=== PATIENT | female | born 1995 | race Caucasian/White ===

== ENCOUNTER 2021-03-19 15:17 | Outpatient (CLI) | payer OTHER | END 2021-03-19 15:18 | disposition home or self-care (01) | LOC: LAB.N 15:17 | PROVIDERS: ATTEND Obstetrics & Gynecology | DX: Z32.01 Encounter for pregnancy test, result positive (principal); Z87.59 Personal history of other complications of pregnancy, childbirth and the puerperium | CPT/HCPCS: 36415; 84702 ==

== ENCOUNTER 2021-03-22 08:00 | Outpatient (CLI) | payer OTHER | END 2021-03-22 08:01 | disposition home or self-care (01) | LOC: LAB.WCP 08:00 | PROVIDERS: ATTEND Obstetrics & Gynecology | DX: Z32.01 Encounter for pregnancy test, result positive (principal); Z87.59 Personal history of other complications of pregnancy, childbirth and the puerperium | CPT/HCPCS: 36415; 84702; 86900; 86901 ==

== ENCOUNTER 2021-03-22 13:52 | Outpatient (CLI) | payer OTHER | END 2021-03-22 13:53 | disposition home or self-care (01) | LOC: LAB.N 13:52 | PROVIDERS: ATTEND Obstetrics & Gynecology | DX: Z32.01 Encounter for pregnancy test, result positive (principal); Z87.59 Personal history of other complications of pregnancy, childbirth and the puerperium | CPT/HCPCS: 36415; 84702; 86900; 86901 ==

== ENCOUNTER 2021-03-27 08:00 | Outpatient (CLI) | payer OTHER | END 2021-03-27 23:59 | disposition home or self-care (01) | LOC: LAB.WCP 08:00 | PROVIDERS: ATTEND Obstetrics & Gynecology | DX: Z32.01 Encounter for pregnancy test, result positive (principal); Z87.59 Personal history of other complications of pregnancy, childbirth and the puerperium | CPT/HCPCS: 36415; 84702 ==

== ENCOUNTER 2021-03-30 08:00 | Outpatient (CLI) | payer OTHER | END 2021-03-30 23:59 | disposition home or self-care (01) | LOC: LAB.WCP 08:00 | PROVIDERS: ATTEND Obstetrics & Gynecology | DX: Z32.01 Encounter for pregnancy test, result positive (principal); Z87.59 Personal history of other complications of pregnancy, childbirth and the puerperium | CPT/HCPCS: 36415; 84702 ==

== ENCOUNTER 2021-04-02 11:50 | Outpatient (CLI) | payer OTHER ==
--- NOTE | 2021-04-02 15:46 | Ultrasound Report ---
PROCEDURE: OB First Trimester w/TV INDICATIONS: HX OF SPONTANEOUS , POSITIVE PREG TEST OUTSIDE/PRIOR DATING DATA: Last menstrual period (LMP): 02/16/2021. LMP-based estimated date of delivery (CONNIE): 11/23/2021 First dating scan (date and location): 04/02/2021. Estimated date of delivery (CONNIE) from first dating scan: 11/23/2021. TECHNIQUE: Real-time scanning was performed of the fetus and maternal pelvic organs, with image documentation. Endovaginal scanning was also performed to better visualize the fetus and maternal ovaries. COMPARISON: FINDINGS: Embryo: There is a single living intrauterine gestation with a heart rate of 122 bpm. [place]-ru mp length is 6 mm corresponding to a 6 week 3 day gestation. Measurement variability in dating: +/- 4 weeks by LMP, +/- 7 days by mean sac diameter (use before 6 weeks gestation if crown-rump length not able to be measured), +/- 5 days by crown-rump length (6-12 weeks gestation). Maternal organs: Ovaries there is a left-sided corpus luteal cyst.. IMPRESSION: Single living intrauterine gestation as above. Reviewed by: Chaya Atkins MD on 04/02/2021 3:45 PM PDT Approved by: Chaya Atikns MD on 04/02/2021 3:45 PM PDT Station ID: [id number]
== END 2021-04-02 11:51 | disposition home or self-care (01) ==
LOC: DI 11:50
PROVIDERS: ATTEND Obstetrics & Gynecology
DX: Z32.01 Encounter for pregnancy test, result positive (principal); Z87.59 Personal history of other complications of pregnancy, childbirth and the puerperium

== ENCOUNTER 2021-05-10 08:00 | Outpatient (CLI) | payer OTHER ==
[2021-05-11 17:52] LABS: % IRON SATURATION 27 % (20-50); IRON 97 ug/dL (28-170); TOTAL IRON BINDING CAPACITY 365 ug/dL (250-450); TRANSFERRIN 261 mg/dL (192-382)
== END 2021-05-10 23:59 | disposition home or self-care (01) ==
LOC: LAB 08:00
PROVIDERS: ATTEND Obstetrics & Gynecology
DX: O99.019 Anemia complicating pregnancy, unspecified trimester (principal); D64.9 Anemia, unspecified
CPT/HCPCS: 36415; 83540; 84466

== ENCOUNTER 2021-05-10 08:00 | Outpatient (CLI) | payer OTHER ==
[2021-05-10 16:01] LABS: MUDS CUTOFF CONCENTRATIONS CUTOFF CONC BELOW:
[2021-05-10 16:06] LABS: BILIRUBIN,URINE NEGATIVE (NEGATIVE); GLUCOSE, URINE (UA) NEGATIVE (NEGATIVE); KETONES,URINE (UA) TRACE mg/dL (NEGATIVE); LEUKOCYTE ESTERASE, URINE NEGATIVE (NEGATIVE); NITRITE,URINE NEGATIVE (NEGATIVE); OCCULT BLOOD,URINE NEGATIVE (NEGATIVE); PROTEIN,URINE NEGATIVE (NEGATIVE); UROBILINOGEN,URINE 0.2 (NORMAL) E.U./dL (NORMAL)
[2021-05-10 16:12] LABS: CLARITY,URINE HAZY (CLEAR)
[2021-05-10 16:16] LABS: BACTERIA,URINE Moderate /HPF (None Seen); MUCUS,URINE Moderate Strands; RBC,URINE 0-5 /HPF (0-5); SQUAMOUS EPITHELIAL CELL,UR MOD Squamous (<= Few); WBC,URINE 0-3 /HPF (0-5)
[2021-05-10 16:17] LABS: AMPHETAMINE SCREEN,URINE NEGATIVE (NEGATIVE); BARBITURATE SCREEN,UR NEGATIVE (NEGATIVE); BENZODIAZEPINES SCREEN, URINE NEGATIVE (NEGATIVE); COCAINE SCREEN URINE NEGATIVE (NEGATIVE); METHADONE SCREEN, URINE NEGATIVE (NEGATIVE); METHAMPHETAMINES SCREEN, URINE NEGATIVE (NEGATIVE); OPIATE SCREEN, URINE NEGATIVE (NEGATIVE); OXYCODONE SCREEN, URINE NEGATIVE (NEGATIVE); PROPOXYPHENE SCREEN, URINE NEGATIVE (NEGATIVE); THC CANNABINOID SCREEN, URINE NEGATIVE (NEGATIVE); TRICYCLIC ANTIDEPRESSANT,URINE NEGATIVE (NEGATIVE)
[2021-05-10 21:27] LABS: CHLAMYDIA TRACHOMATIS DNA NEGATIVE (NEGATIVE); NEISSERIA GONORRHOEAE DNA NEGATIVE (NEGATIVE); TRICHOMONAS VAGINALIS DNA NEGATIVE (NEGATIVE)
== END 2021-05-10 23:59 | disposition home or self-care (01) ==
LOC: LAB.WC 08:00
PROVIDERS: ATTEND Obstetrics & Gynecology
DX: Z34.90 Encounter for supervision of normal pregnancy, unspecified, unspecified trimester (principal); Z36.89 Encounter for other specified antenatal screening
CPT/HCPCS: 80306; 81001; 87086; 87491; 87591; 87661

== ENCOUNTER 2021-05-10 14:12 | Outpatient (CLI) | payer OTHER ==
[2021-05-10 14:42] LABS: BASOPHILS % (AUTO) 0.3 %; EOSINOPHILS # (AUTO) 0.1 10^3/uL (0.0-0.7); HCT - HEMATOCRIT 32.7 % (37.0-47.0); HGB - HEMOGLOBIN 11.4 g/dL (12.0-16.0); LYMPHOCYTES # (AUTO) 1.6 10^3/uL (1.5-3.5); LYMPHOCYTES % (AUTO) 20.8 %; MEAN CORPUSCULAR HEMOGLOBIN 32.6 pg (27.0-31.0); MEAN CORPUSCULAR HGB CONC 34.9 g/dL (32.0-36.0); MEAN CORPUSCULAR VOLUME 93.4 fL (81.0-99.0); MEAN PLATELET VOLUME 9.2 fL (7.9-10.8); MONOCYTES # (AUTO) 0.4 10^3/uL (0.0-1.0); NEUTROPHILS # (AUTO) 5.6 10^3/uL (1.5-6.6); NEUTROPHILS % (AUTO) 72.5 %; PLT - PLATELET COUNT 255 10^3/uL (130-450); RED CELL DISTRIBUTION WIDTH 12.7 % (12.0-15.0); WHITE BLOOD COUNT 7.8 x10^3/uL (4.8-10.8)
[2021-05-10 15:28] LABS: THYROID STIMULATING HORMONE 0.69 uIU/mL (0.34-5.60)
[2021-05-11 12:46] LABS: HEPATITIS C ANTIBODY NON-REACTIVE (NON-REACTIVE)
[2021-05-11 12:48] LABS: HEPATITIS B SURFACE ANTIGEN NON-REACTIVE (NON-REACTIVE)
[2021-05-11 16:26] LABS: HIV AG/AB 4TH GEN NON-REACTIVE (NON-REACTIVE)
== END 2021-05-10 14:13 | disposition home or self-care (01) ==
LOC: LAB 14:12
PROVIDERS: ATTEND Obstetrics & Gynecology
DX: Z34.90 Encounter for supervision of normal pregnancy, unspecified, unspecified trimester (principal); Z36.89 Encounter for other specified antenatal screening; Z13.21 Encounter for screening for nutritional disorder; Z83.49 Family history of other endocrine, nutritional and metabolic diseases
CPT/HCPCS: 36415; 80306; 81001; 82306; 84443; 85025; 86592; 86762; 86787; 86803; 86850; 86900; 86901; 87086; 87340; 87389; 87491; 87591; 87661

== ENCOUNTER 2021-05-21 08:00 | Outpatient (CLI) | payer OTHER | END 2021-05-21 23:59 | disposition home or self-care (01) | LOC: LAB.WCP 08:00 | PROVIDERS: ATTEND Obstetrics & Gynecology | DX: O99.019 Anemia complicating pregnancy, unspecified trimester (principal) | CPT/HCPCS: 36415; 81599; 82306; 82728; 83036; 83540; 84443; 85025; 86592; 86762; 86787; 86803; 86850; 86900; 86901; 87340; 87389 ==

== ENCOUNTER 2021-05-23 11:14 | Outpatient (CLI) | payer SELFPAY | END 2021-05-23 11:15 | disposition home or self-care (01) | LOC: LAB 11:14 | PROVIDERS: ATTEND Obstetrics & Gynecology | DX: Z34.01 Encounter for supervision of normal first pregnancy, first trimester (principal) | CPT/HCPCS: 36415 ==

== ENCOUNTER 2021-06-21 08:00 | Outpatient (CLI) | payer OTHER ==
[2021-06-21 16:27] LABS: BILIRUBIN,URINE NEGATIVE (NEGATIVE); GLUCOSE, URINE (UA) NEGATIVE (NEGATIVE); KETONES,URINE (UA) NEGATIVE (NEGATIVE); LEUKOCYTE ESTERASE, URINE NEGATIVE (NEGATIVE); NITRITE,URINE NEGATIVE (NEGATIVE); OCCULT BLOOD,URINE NEGATIVE (NEGATIVE); PH,URINE 5.5 PH (5.0-7.5); PROTEIN,URINE NEGATIVE (NEGATIVE); UROBILINOGEN,URINE 0.2 (NORMAL) E.U./dL (NORMAL)
[2021-06-21 16:46] LABS: BACTERIA,URINE Rare /HPF (None Seen); CLARITY,URINE CLEAR (CLEAR); RBC,URINE 0-5 /HPF (0-5); SQUAMOUS EPITHELIAL CELL,UR FEW Squamous (<= Few); WBC,URINE 0-3 /HPF (0-5)
== END 2021-06-21 23:59 | disposition home or self-care (01) ==
LOC: LAB.WC 08:00
PROVIDERS: ATTEND Obstetrics & Gynecology
DX: O99.891 Other specified diseases and conditions complicating pregnancy (principal); R33.9 Retention of urine, unspecified; R35.0 Frequency of micturition
CPT/HCPCS: 81001; 87086

== ENCOUNTER 2021-07-04 06:56 | Outpatient (CLI) | payer OTHER ==
--- NOTE | 2021-07-04 15:45 | Ultrasound Report ---
PROCEDURE: OB Detailed Eval INDICATIONS: SUPERVISION OF OUTSIDE/PRIOR DATING DATA: Last menstrual period (LMP): 02/16/2021. LMP-based estimated date of delivery (CONNIE): 11/23/2021. First dating scan (date and location): 04/02/2021. Estimated date of delivery (CONNIE) from first dating scan: 11/23/2021. The below data below was generated using the clinical and ultrasound CONNIE, both 11/23/2021 TECHNIQUE: Real-time scanning was performed of the fetus, with image documentation and biometric measurements. COMPARISON: OB ultrasound 04/02/2021 FINDINGS: General: A single living intrauterine gestation is present. Presentation: Cephalic Placenta: Placental position is posterior, without previa. Amniotic fluid index: 16.2 cm, within normal limits for gestational age. Largest pocket 5.4 cm heart rate: 150 beats per minute. Maternal cervical canal: 4.1 cm long; normal length is 2.5 cm or more. biometrics: Biparietal diameter: 5.2 cm 21 weeks 4 days Head circumference: 18.3 cm 20 weeks 5 days Abdominal circumference: 15.2 cm 20 weeks 3 days Femur length: 3.4 cm 20 weeks 3 days Estimated gestational age from initial scan: 19 weeks 5 days Composite gestational age from present scan: 20 weeks 6 days Estimated weight and percentile: 3 60 g 88th percentile Measurement variability in biometric dating: +/- 10 days from 12-20 weeks gestation, +/- 2 weeks from 20-30 weeks gestation, +/- 3 weeks at 30 weeks gestation or later. Anatomic survey: Neuro: Ventricles are normal at less than 10 mm. Cisterna magna is normal at 3-11 mm. Cerebellum i s normal in size and morphology. Nuchal skin fold: Normal at less than 6 mm between 14 and 20 weeks gestational age. Face: Nose and lips, facial profile are normal. Spine: No evidence for spina bifida. Heart: 4-chambered heart is present, with normal ventricular outflow tracts. Diaphragm: Diaphragm is intact. Stomach: Left-sided stomach is present. Kidneys: No hydronephrosis. Normal is less than 5 mm in 2nd trimester, less than 7 mm in 3rd trimester. Cord: 3 vessel cord has orthotopic insertion. Bladder: Normal in size. Extremities: All 4 extremities are visualized. IMPRESSION: 1. Single live intrauterine . 2. Anatomy is within normal limits. Reviewed by: Kaykay Ramos MD on 07/04/2021 3:44 PM PDT Approved by: Kaykay Ramos MD on 07/04/2021 3:44 PM PDT Station ID: [id number]
== END 2021-07-04 06:57 | disposition home or self-care (01) ==
LOC: DI 06:56
PROVIDERS: ATTEND Obstetrics & Gynecology
DX: Z34.92 Encounter for supervision of normal pregnancy, unspecified, second trimester (principal); Z3A.19 19 weeks gestation of pregnancy

== ENCOUNTER 2021-08-14 14:50 | Outpatient (CLI) | payer OTHER ==
[2021-08-14 15:12] VITALS: BP 121/75
[2021-08-14 15:49] LABS: BILIRUBIN,URINE NEGATIVE (NEGATIVE); GLUCOSE, URINE (UA) NEGATIVE (NEGATIVE); KETONES,URINE (UA) NEGATIVE (NEGATIVE); LEUKOCYTE ESTERASE, URINE SMALL (NEGATIVE); NITRITE,URINE NEGATIVE (NEGATIVE); OCCULT BLOOD,URINE NEGATIVE (NEGATIVE); PH,URINE 6.5 PH (5.0-7.5); PROTEIN,URINE NEGATIVE (NEGATIVE); UROBILINOGEN,URINE 0.2 (NORMAL) E.U./dL (NORMAL)
[2021-08-14 15:53] LABS: CLARITY,URINE SL. CLOUDY (CLEAR)
--- NOTE | 2021-08-14 15:57 | PROVIDER PROGRESS NOTE ---
Progress Note Patient is a 26-year-old -0-2-0 at 25 weeks 4 days gestation presenting to triage for cramping. This started yesterday evening and has continued throughout today. She does think this is getting mildly worse. It is intermittent, sometimes with cramping, sometimes debilitating. She has good movement, no leaking, no vaginal bleeding. She denies headache, right upper quadrant pain, changes in vision. Patient does have a history of two prior miscarriages and was on progesterone earlier this . Past medical history Asthma, fibrocystic breast disease, anxiety Past surgical history Denies Family history Mother, rhe hyperlipidemia id arthritis, Po's thyroiditis, osteoporosis, hyperlipidemia Father: Skin cancer, hyperlipidemia Sister: Thyroid disease Paternal grandfather: Coronary vascular disease, prostate cancer Paternal grand mother: Breast cancer, melanoma Paternal aunt: Melanoma, gallbladder cancer Social history Denies tobacco, alcohol, drugs, Physical Temp Pulse Resp BP Pulse Ox 99.0 F 92 16 121/75 98 08/14/21 15:09 08/14/21 15:09 08/14/21 15:09 08/14/21 15:09 08/14/21 15:09 Constitutional: alert, no acute distress, well hydrated, well developed, well nourished, appropriate dress. Skin: normal turgor, normal color. Head: atraumatic, normocephalic. Cardiovascular: RRR. Respiratory: no respiratory distress. Abdomen: nondistended, nontender. Spine: normal mobility. Neurologic: normal, sensation intact, motor intact. Psych: affect and mood appropriate, normal interaction, good eye contact. SVE: 0/0/-3 Dobson: Irritable Assessment and Plan 1. False labor fibronectin deferred due to recent cervical exams. Cervical length showed no cervical shortening. Irritability on exam, no contractions. UA sent for culture. Will follow up. Nitrite negative with no dysuria. No cervical change on repeat exam. Follow up in clinic in two days for routine OB visit. 2. 25 weeks gestation
[2021-08-14 16:24] LABS: BACTERIA,URINE Few /HPF (None Seen); RBC,URINE 0-5 /HPF (0-5); SQUAMOUS EPITHELIAL CELL,UR FEW Squamous (<= Few)
--- NOTE | 2021-08-14 17:37 | Ultrasound Report ---
PROCEDURE: OB Limited INDICATIONS: ABDOMINAL CRAMPING OUTSIDE/PRIOR DATING DATA: Last menstrual period (LMP): 02/16/2021 LMP-based estimated date of delivery (CONNIE): 11/23/2021. First dating scan (date and location): 04/02/2021. Estimated date of delivery (CONNIE) from first dating scan: 11/23/2021. The below data below was generated using the concordant ultrasound and LMP derived CONNIE of 11/23/2021 TECHNIQUE: Real-time scanning was performed of the fetus, with image documentation. COMPARISON: 07/04/2021, 04/02/2021. FINDINGS: A single living intrauterine gestation is present. Presentation: Cephalic Placenta: Placental position is posterior, without previa. Amniotic fluid index: 19.5 cm, within normal limits for gestational age. heart rate: 148 beats per minutes. Maternal cervical canal: 5.2 cm long; normal length is 2.5 cm or more. Estimated gestational age from initial scan: 25 weeks 4 days. IMPRESSION: 1. Single living intrauterine in cephalic position redemonstrated. 2. Amniotic fluid index within normal limits. 3. Closed cervix measuring up to 5.2 cm. Reviewed by: Son Flynn MD on 08/14/2021 5:36 PM PDT Approved by: Son Flynn MD on 08/14/2021 5:36 PM PDT Station ID: [id number]
== END 2021-08-14 17:15 | disposition home or self-care (01) ==
LOC: WFO 14:50 → FBP 14:52 → WFO 17:15
PROVIDERS: ATTEND Obstetrics & Gynecology
DX: O47.02 False labor before 37 completed weeks of gestation, second trimester (principal); Z3A.25 25 weeks gestation of pregnancy; O09.292 Supervision of pregnancy with other poor reproductive or obstetric history, second trimester; O26.22 Pregnancy care for patient with recurrent pregnancy loss, second trimester
CPT/HCPCS: 81001; 81003; 82731; 87086; 99215

== ENCOUNTER 2021-09-05 08:00 | Outpatient (CLI) | payer OTHER ==
[2021-09-05 12:03] LABS: HCT - HEMATOCRIT 33.3 % (37.0-47.0); MEAN CORPUSCULAR HEMOGLOBIN 32.4 pg (27.0-31.0); MEAN CORPUSCULAR VOLUME 97.9 fL (81.0-99.0); MEAN PLATELET VOLUME 10.1 fL (7.9-10.8); RED BLOOD COUNT 3.4 10^6/uL (4.20-5.40); RED CELL DISTRIBUTION WIDTH 13.1 % (12.0-15.0); WHITE BLOOD COUNT 8.5 x10^3/uL (4.8-10.8)
== END 2021-09-05 23:59 | disposition home or self-care (01) ==
LOC: LAB.WCP 08:00
PROVIDERS: ATTEND Obstetrics & Gynecology
DX: Z34.90 Encounter for supervision of normal pregnancy, unspecified, unspecified trimester (principal); Z36.89 Encounter for other specified antenatal screening
CPT/HCPCS: 36415; 82950; 85025; 85027

== ENCOUNTER 2021-09-07 08:00 | Outpatient (CLI) | payer OTHER ==
[2021-09-07 08:46] LABS: GTT GLUCOSE,FASTING 96 mg/dL (70-100)
== END 2021-09-07 08:01 | disposition home or self-care (01) ==
LOC: LAB 08:00
PROVIDERS: ATTEND Obstetrics & Gynecology
DX: R73.02 Impaired glucose tolerance (oral) (principal)
CPT/HCPCS: 36415; 82951; 82952

== ENCOUNTER 2021-09-18 10:00 | Outpatient (CLI) | payer OTHER | END 2021-09-18 10:01 | disposition home or self-care (01) | LOC: MAC.DIA 10:00 | PROVIDERS: ATTEND Obstetrics & Gynecology | DX: O24.419 Gestational diabetes mellitus in pregnancy, unspecified control (principal) ==